=== PATIENT | male | born 1960 | race Caucasian/White ===

== ENCOUNTER 2022-06-21 08:39 | Outpatient (CLI) | payer OTHER, SELFPAY | END 2022-06-21 08:40 | disposition home or self-care (01) | PROVIDERS: PCP Family Medicine; Visit Provider Family Medicine | DX: I10 Essential (primary) hypertension (principal); G62.9 Polyneuropathy, unspecified; Z12.5 Encounter for screening for malignant neoplasm of prostate | CPT/HCPCS: 80048; 80061; 82607; 84153; 84443 ==

== ENCOUNTER 2023-05-26 10:49 | Outpatient (CLI) | payer OTHER, SELFPAY | END 2023-05-26 10:50 | disposition home or self-care (01) | LOC: NFLDREF 10:49 | PROVIDERS: PCP Family Medicine; Visit Provider Family Medicine | DX: I10 Essential (primary) hypertension (principal) | CPT/HCPCS: 80048 ==

== ENCOUNTER 2024-06-03 12:36 | Outpatient (CLI) | payer OTHER, SELFPAY | END 2024-06-03 12:37 | disposition home or self-care (01) | LOC: NFLDUCREF 12:37 | PROVIDERS: PCP Family Medicine; Visit Provider Nurse Practitioner | DX: R22.42 Localized swelling, mass and lump, left lower limb (principal); R79.89 Other specified abnormal findings of blood chemistry | CPT/HCPCS: 85379 ==

== ENCOUNTER 2024-06-03 14:51 | Emergency (ER) | payer OTHER, SELFPAY ==
--- OUTSIDE RECORDS SUMMARY | 2024-06-03 14:54 | XMS_ITS | Clinical Summary ---
Author Organization [facility] Address [address] [place] [address] Care Team Providers Care Mold Breaker Name Role Phone Found, No Pcp MD Primary Care Provider Unavailab le Source Comments You are receiving this document as you are listed as the primary care provider,follow-up provider, or the patient has been referred to you for consultation.This is in compliance with the Medicare and[facility] Incentive [facility],which states Providers who transition their patient to another setting of careor provider of care or refers their patient to another provider of care shouldprovide summary care record for each transition of care or referral. 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 Not on file Not o n file Last Filed Vital Signs Vital Sign Reading Time Taken Comments Blood Pressure 143/96 10/10/2016 3:28 PM CDT Pulse 72 04/08/2016 11:37 AM SHAKE SPLITTER Temperature - - Respiratory Rate 16 04/06/2013 1:45 PM SHAKE SPLITTER Oxygen Saturation 96% 04/06/2013 1:45 PM SHAKE SPLITTER Inhaled Oxygen Concentration - - Weight 90.3 kg (199 lb) 10/10/2016 3:24 PM CDT Height 182.9 cm (6') 10/10/2016 3:24 PM CDT Body Mass Index 26.99 10/10/2016 3:24 PM CDT Plan of Treatment Health Maintenance Due Date Last Done Comments Hep C Screening (Preventive Services) 1960 Adult Preventive Visit 02/07/1980 Pneumococcal Vaccine 50+ Yrs (1 of 1 - PCV) 02/07/2012 Zoster/Shingles Vaccine (1 of 2) 02/07/2012 PSA Screening Discussion 02/10/2016 02/09/2015 Cholesterol 02/10/2020 02/09/2015, 04/04/2011, 05/04/2004, Additional history exists DTaP/Tdap/Td Vaccine (2 - Tdap) 05/19/2021 05/20/2011 Colonoscopy 04/06/2023 04/06/2013 (Completed) COVID-19 Vaccine (1 - 2023- season) 2023 Influenza Vaccine (#1) 2023 6, 11/17/2014, 11/17/2014 (Completed) RSV Vaccine (1 - 1-dose 75+ series) 2037 HIV Screening (Preventive Services) Completed 05/11/2001, 02/16/2001 HepA Vaccine Aged Out 04/07/2017, 09/27/2016 No lo nger eligible based on patient's age to complete this topic HepB Vaccine Aged Out No longer eligi ble based on patient's age to complete this topic Hib Vaccine Aged Out No longer eligi ble based on patient's age to complete this topic IPV (Polio) Vaccine Aged Out No longe r eligible based on patient's age to complete this topic MCV4 Vaccine Aged Out No longer eligi ble based on patient's age to complete this topic Meningococcal B Vaccine Aged Out No l onger eligible based on patient's age to complete this topic Procedures Procedure Name Priority Date/Time Associated Diagnosis Comments PROSTATIC SPECIFIC ANTIGEN(SCREEN) Routine 02/09/2015 10:11 AM SHAKE SPLITTER Screening for prostate cancer LIPID PANEL & DIRECT LDL (IF NEEDED) Routine 02/09/2015 10:11 AM SHAKE SPLITTER Screening for cholesterol level HIV ANTIBODY Routine 05/11/2001 8:22 AM SHAKE SPLITTER from Last 3 Months or Most Recently Relevant to Health Maintenance Results * (ABNORMAL) Lipid Panel and Direct LDL(If Needed) (02/09/2015 10:11 AM SHAKE SPLITTER) Cholesterol 143 0 - 199 mg/dL HP CONVERSION Triglycerides 80 4 - 149 mg/dL HP CONVERSION HDL Cholesterol 39(L) >39 mg/dL HP CONVERSION Cholesterol/HDL Ratio Screen 3.7 HP CONVERSION LDL Calculated 88 19 - 130 mg/dL HP CONVERSION Hours Fasting 12.0 HP CONVERSION 02/09/2015 10:1 1 AM SHAKE SPLITTER 02/09/2015 12:45 PM SHAKE SPLITTER Narrative HP CONVERSION - 02/09/2015 1:44 PM SHAKE SPLITTER Performed at [address] [address] CLIA number [id number] Jacob Tobin MD LAB_1 Final Result HP CONVERSION * Prostatic Specific Antigen (Screen) (02/09/2015 10:11 AM SHAKE SPLITTER) Pathologist [facility] Prostate Specific Antigen 1.0 0.0 - 4.0 ng/mL HP CONVERSION Comment: The [employer] PSA Chemiluminescent immunoassay is used. Results obtained with different test methods or kits cannot be used interchangeably. 02/09/2015 10:1 1 AM SHAKE SPLITTER 02/09/2015 12:45 PM SHAKE SPLITTER Narrative HP CONVERSION - 02/09/2015 1:58 PM SHAKE SPLITTER Performed at [address] [address] CLIA number [id number] Jacob Tobin MD LAB_1 Final Result HP CONVERSION * HIV Antibody (05/11/2001 8:22 AM SHAKE SPLITTER) [facility] HIV 1/HIV 2 Non Reac Non Reac HP CONVERSION 05/11/2001 8:22 AM SHAKE SPLITTER Darrell Rudd MD LAB_1 Final Result HP CONVERSION from Last 3 Months or Most Recently Relevant to Health Maintenance Insurance [facility] Care Teams Mold Breaker Relationship Specialty Start Date End Date Found, No Pcp, [id number] [place] [address] PCP - General 12/24/19
[2024-06-03 15:01] VITALS: BP 119/80; PULSE 90; RESP 18; TEMP 36.9; O2SAT 96; BMI 27.8
--- NOTE | 2024-06-03 15:13 | ED_ITS ---
HPI - General Adult General Time Seen by Provider: 15:13 <Abby Sanon MD - Last Filed: 06/03/24 15:39> Date Seen: 06/03/24 <Abby Sanon MD - Last Filed: 06/03/24 15:39> Chief complaint: Lower Extremity Swelling <Abby Sanon MD - Last Filed: 06/03/24 15:39> Stated complaint: possible blood clot <Abby Sanon MD - Last Filed: 06/03/24 15:39> Time Seen by Provider: 06/03/24 15:13 <Abby Sanon MD - Last Filed: 06/03/24 15:39> Source: patient and RN notes reviewed <Abby Sanon MD - Last Filed: 06/03/24 15:39> Mode of arrival: ambulatory <Abby Sanon MD - Last Filed: 06/03/24 15:39> Limitations: no limitations <Abby Sanon MD - Last Filed: 06/03/24 15:39> History of Present Illness HPI narrative: royce is a very pleasant 64-year-old male with history of hypertension currently on losartan/hydrochlorothiazide who comes to the emergency room have with a referral from urgent care for possible blood clot. Royce had been traveling earlier in the week but had been wearing compression hose. He noted in the last 24 hours area of redness discomfort in firmness on the left posterior medial thigh. He has not had any fevers chills vomiting. He denies a history of DVT or PE. He has no shortness of breath. D-dimer at outside facility for report was elevated. <Abby Sanon MD - Last Filed: 06/03/24 15:39> Related Data Home medications: Previous Rx's ?Medication ?Instructions ?Recorded losartan 100 1 tab PO QDAY #90 tabs 05/26/23 mg-hydrochlorothiazide 12.5 mg tablet apixaban 5 mg (74 tabs) tablets in 5 mg PO BID #74 ea 06/03/24 a dose pack (Eliquis DVT-PE Treat 30D Start) cephalexin 500 mg capsule 500 mg PO QID #20 caps 06/03/24 <Abby Sanon MD - Last Filed: 06/03/24 15:39> Allergies/adverse reactions: Allergies Allergy/AdvReac Type Severity Reaction Status Date / Time CYNTHIA Inhibitors AdvReac Mild Cough Verified 06/03/24 15:00 lisinopril AdvReac Mild Cough Verified 06/03/24 15:00 <Abby Sanon MD - Last Filed: 06/03/24 15:39> Review of Systems Status of ROS: Reports: 6 or more systems reviewed and unremarkable except as noted in History and below <Abby Sanon MD - Last Filed: 06/03/24 15:39> [facility] Medical History: Medical History Primary hypertension ?I10 - Essential (primary) hypertension (ICD-10) History of disruption of posterior cruciate ligament ?Z87.828 - Personal history of other (healed) physical injury and trauma (ICD-10) GERD (gastroesophageal reflux disease) ?K21.9 - Gastro-esophageal reflux disease without esophagitis (ICD-10) KELLEY on CPAP ?G47.33 - Obstructive sleep apnea (adult) (pediatric) (ICD-10) ADD (attention deficit disorder) ?F98.8 - Other specified behavioral and emotional disorders with onset usually occurring in childhood and adolescence (ICD-10) Anxiety and depression ?F41.9 - Anxiety disorder, unspecified (ICD-10) ?F32.A - Depression, unspecified (ICD-10) Rosacea ?L71.9 - Rosacea, unspecified (ICD-10) Hearing loss ?H91.90 - Unspecified hearing loss, unspecified ear (ICD-10) History of concussion (2017) ?Z87.820 - Personal history of traumatic brain injury (ICD-10) <Abby Sanon MD - Last Filed: 06/03/24 15:39> Surgical History: Surgical History History of vasectomy ?Z98.52 - Vasectomy status (ICD-10) History of umbilical hernia repair (06/24/21) ?Z98.890 - Other specified postprocedural states (ICD-10) ?Z87.19 - Personal history of other diseases of the digestive system (ICD-10) History of bilateral inguinal hernia repair (06/24/21) ?Z98.890 - Other specified postprocedural states (ICD-10) ?Z87.19 - Personal history of other diseases of the digestive system (ICD-10) <Abby Sanon MD - Last Filed: 06/03/24 15:39> Family History: Family History Paternal Grandmother Stroke, Onset Age: 58 Maternal Grandfather Lung cancer Mother Breast cancer, Onset Age: 64 High blood pressure Father Nonmelanoma skin cancer Depression Brother Depression Alcohol dependence <Abby Sanon MD - Last Filed: 06/03/24 15:39> Social History: Social History Smoking Status: Never smoker How often do you have a drink containing alcohol: monthly or less AUDIT-C Alcohol total score: 1 Non-prescribed substance use: denies use <Abby Sanon MD - Last Filed: 06/03/24 15:39> Exam Narrative: Exam Narrative: Alert and oriented. No acute distress. Heart with regular rate and rhythm and lungs are clear. Examination of lower extremity shows a softball sized area of erythema on the left posterior medial distal thigh. There is a palpable area of firmness measuring approximately 3 cm in length by 1 cm in diameter. Mild tenderness noted. On the proximal posterior medial calf there is an area of erythema approximately plum size without any tenderness or underlying abnormality. The area of redness is warm to the touch. <Abby Sanon MD - Last Filed: 06/03/24 15:39> Const: Vital Signs, click to edit/add: Vital Signs - 24 hr 06/03/24 15:01 Temperature 98.5 F Pulse Rate [Pulse Oximeter] 90 Respiratory Rate 18 Blood Pressure [Ri ght Upper Arm] 119/80 Pulse Oximetry 96 Oxygen Delivery Me thod Room Air <Abby Sanon MD - Last Filed: 06/03/24 15:39> Vital Signs, click to edit/add: Vital Signs - 24 hr 06/03/24 15:01 Temperature 98.5 F Pulse Rate [Pulse Oximeter] 90 Respiratory Rate 18 Blood Pressure [Ri ght Upper Arm] 119/80 Pulse Oximetry 96 Oxygen Delivery Me thod Room Air <Justin Del Cid DO - Last Filed: 06/03/24 16:44> Documenting provider has reviewed patient's vital signs: yes <Abby Sanon MD - Last Filed: 06/03/24 15:39> Course Course ED Course: Differential diagnosis includes but is not limited to DVT, cellulitis, abscess. Bilateral lower extremity Dopplers ordered as patient did have extended travel for 2 days earlier this week. D-dimer is 0.52 which is essentially normal with age adjustment. However, patient has palpable abnormality and therefore Dopplers have been ordered. Patient does not smoke, have a family history of DVT or other risk factors. This case is signed out to my colleague Dr. Del Cid <Abby Sanon MD - Last Filed: 06/03/24 15:39> Vital Signs Vital signs: Initial Vital Signs Temperature 98.5 F 06/03/24 15:01 Temperature Source Temporal Artery Scan 06/03/24 15:01 Pulse Rate 90 06/03/24 15:01 Pulse Rhythm Regular 06/03/24 15:01 Respiratory Rate 18 06/03/24 15:01 Blood Pressure 119/80 06/03/24 15:01 Blood Pressure Mean 93 06/03/24 15:01 Blood Pressure Position Sitting 06/03/24 15:01 Pulse Oximetry 96 06/03/24 15:01 Oxygen Delivery Method Room Air 06/03/24 15:01 Vital Signs Temperature 98.5 F 06/03/24 15:01 Pulse Rate 90 06/03/24 15:01 Respiratory Rate 18 06/03/24 15:01 Blood Pressure 119/80 06/03/24 15:01 Pulse Oximetry 96 06/03/24 15:01 Oxygen Delivery Method Room Air 06/03/24 15:01 Temperature 98.5 F 06/03/24 15:01 Pulse Rate 90 06/03/24 15:01 Respiratory Rate 18 06/03/24 15:01 Blood Pressure 119/80 06/03/24 15:01 Pulse Oximetry 96 06/03/24 15:01 Oxygen Delivery Method Room Air 06/03/24 15:01 <Abby Sanon MD - Last Filed: 06/03/24 15:39> Initial Vital Signs Temperature 98.5 F 06/03/24 15:01 Temperature Source Temporal Artery Scan 06/03/24 15:01 Pulse Rate 90 06/03/24 15:01 Pulse Rhythm Regular 06/03/24 15:01 Respiratory Rate 18 06/03/24 15:01 Blood Pressure 119/80 06/03/24 15:01 Blood Pressure Mean 93 06/03/24 15:01 Blood Pressure Position Sitting 06/03/24 15:01 Pulse Oximetry 96 06/03/24 15:01 Oxygen Delivery Method Room Air 06/03/24 15:01 Vital Signs Temperature 98.5 F 06/03/24 15:01 Pulse Rate 90 06/03/24 15:01 Respiratory Rate 18 06/03/24 15:01 Blood Pressure 119/80 06/03/24 15:01 Pulse Oximetry 96 06/03/24 15:01 Oxygen Delivery Method Room Air 06/03/24 15:01 Temperature 98.5 F 06/03/24 15:01 Pulse Rate 90 06/03/24 15:01 Respiratory Rate 18 06/03/24 15:01 Blood Pressure 119/80 06/03/24 15:01 Pulse Oximetry 96 06/03/24 15:01 Oxygen Delivery Method Room Air 06/03/24 15:01 <Justin Del Cid DO - Last Filed: 06/03/24 16:44> Medical Decision Making MDM Narrative Medical decision making narrative: Patient was signed out to me pending results of his ultrasound. Ultrasound shows a superficial vein thrombosis at the left greater saphenous vein. This is consistent with the location of his swelling and inflammation. the clot is about 4.3 cm at least. Considering recommendation of treatment is over 5 cm and this clot is almost that long at a minimum I do believe it is reasonable to start him on blood thinners. He has no risk factors. Only medical issues hypertension. I spoke to him about starting him a blood thinners versus not. I explained that they will greatly increase his chance of bleeding and he will need to be careful as any hits to the head could cause severe hemorrhaging. He states he understands and is agreeable to slide the blood thinners. There is also warmth and erythema to this area. Almost thrombophlebitis is narrow I cannot definitively rule out any associated infection. I spoke to him and will start him on Keflex and said to not take the antibiotics unless he starts noticing worsening redness and swelling of the next few days. <Justin Del Cid DO - Last Filed: 06/03/24 16:44> Imaging Data Venous US: Attestation: I have reviewed the pertinent imaging results. <Justin Del Cid DO - Last Filed: 06/03/24 16:44> Radiologist's impression: 1. No deep vein thrombosis in the bilateral lower extremities. 2. There is superficial vein thrombosis seen in the left great saphenous vein at the level of the proximal calf and knee. Dictated by Jf King MD @ 06/03/2024 4:25:49 PM <Justin Del Cid DO - Last Filed: 06/03/24 16:44> Discharge Plan Discharge Clinical Impression: Superficial phlebitis and thrombophlebitis of left leg <Abby Sanon MD - Last Filed: 06/03/24 15:39> Patient Disposition: Home, Self-Care <bAby Sanon MD - Last Filed: 06/03/24 15:39> Condition: Stable <Abby Sanon MD - Last Filed: 06/03/24 15:39> Instructions: Superficial Thrombophlebitis (ED) <Abby Sanon MD - Last Filed: 06/03/24 15:39> Additional Instructions: the redness and warmth around your superficial thrombophlebitis is likely due to inflammation from the blood clot. Is less likely to be antibiotics but I will send you Keflex to start if the redness and warmth is not improving in the next few days. There could possibly be an overlying cellulitis but at this time seems less likely. I will also start you on blood thinners. it is important to be careful when taking blood thinners as they greatly increase the risk of bleeding. Recommend follow-up with Your primary care provider next week. <Abby Sanon MD - Last Filed: 06/03/24 15:39> Prescriptions: New cephalexin 500 mg capsule 500 mg PO QID Qty: 20 0RF Eliquis DVT-PE Treat 30D Start 5 mg (74 tabs) tablets,dose pack 5 mg PO BID Qty: 74 0RF Rx Instructions: take 10 mg twice daily for for 7 days then 5 mg twice daily the her after that No Action losartan-hydrochlorothiazide 100-12.5 mg tablet 1 tab PO QDAY Qty: 90 3RF <Abby Sanon MD - Last Filed: 06/03/24 15:39> Follow Up/Referrals: Gurpreet Cruz MD [Primary Care Provider] - <Abby Sanon MD - Last Filed: 06/03/24 15:39> Stand Alone Forms: MyHealth Info Instructions <Abby Sanon MD - Last Filed: 06/03/24 15:39>
--- NOTE | 2024-06-03 15:17 | CRLHL7_ITS ---
For Patients: As a result of the Century Cures Act, medical imaging exams and procedure reports are released immediately into your electronic medical record. You may view this report before your referring provider. If you have questions, please contact your health care provider. INDICATION: swelling/redness left knee, recent travel TECHNIQUE: Venous duplex ultrasound of the bilateral lower extremities utilizing compression with del rosario-scale, color Doppler, and spectral Doppler imaging. COMPARISON: None FINDINGS: There is no sonographic evidence of deep vein thrombosis in the bilateral common femoral, deep femoral, superficial femoral, popliteal, posterior tibial, or peroneal veins. There is superficial vein thrombosis seen in the left great saphenous vein at the level of the proximal calf and knee. The soft tissues are unremarkable. IMPRESSION: 1. No deep vein thrombosis in the bilateral lower extremities. 2. There is superficial vein thrombosis seen in the left great saphenous vein at the level of the proximal calf and knee. Dictated by Jf King MD @ 06/03/2024 4:25:49 PM (Electronically Signed)
--- OUTSIDE RECORDS SUMMARY | 2024-06-03 16:16 | XMS_ITS | Clinical Summary ---
Author Organization [facility] Address [address] [place] [address] Care Team Providers Care Med Asst Name Role Phone Found, No Pcp MD Primary Care Provider Unavailab le Source Comments You are receiving this document as you are listed as the primary care provider,follow-up provider, or the patient has been referred to you for consultation.This is in compliance with the Medicare and[facility] Incentive Program,which states Providers who transition their patient to another setting of careor provider of care or refers their patient to another provider of care shouldprovide summary care record for each transition of care or referral. 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 Overview (10/09/2016): LW Onset: 88Guk02 ; Low HDL Cholesterol Immunizations Immunization Administration Dates Next Due Chicken Pox - History of Illness 02/16/1967 HepA Adult (19+ yrs) 04/07/2017,09/27/2016 Influenza IIV4 (Quadrivalent) 0.5mL (67503) 11/17,11/17/2014 TDAP (ADACEL) 05/20/2011 Family History Medical [...] 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 Not on file Not o n file Last Filed Vital Signs Vital Sign Reading Time Taken Comments Blood Pressure 143/96 10/10/2016 3:28 PM CDT Pulse 72 04/08/2016 11:37 AM SEALANT MIXER Temperature - - Respiratory Rate 16 04/06/2013 1:45 PM SEALANT MIXER Oxygen Saturation 96% 04/06/2013 1:45 PM SEALANT MIXER Inhaled Oxygen Concentration - - Weight 90.3 [...] PROSTATIC SPECIFIC ANTIGEN(SCREEN) Routine 02/09/2015 10:11 AM SEALANT MIXER Screening for prostate cancer LIPID PANEL & DIRECT LDL (IF NEEDED) Routine 02/09/2015 10:11 AM SEALANT MIXER Screening for cholesterol level HIV ANTIBODY Routine 05/11/2001 8:22 AM SEALANT MIXER from Last 3 Months or Most Recently Relevant to Health Maintenance Results * (ABNORMAL) Lipid Panel and Direct LDL(If Needed) (02/09/2015 10:11 AM SEALANT MIXER) Cholesterol 143 0 - 199 mg/dL HP CONVERSION Triglycerides 80 4 - 149 mg/dL HP CONVERSION HDL Cholesterol 39(L) >39 mg/dL HP CONVERSION Cholesterol/HDL Ratio Screen 3.7 HP CONVERSION LDL Calculated 88 19 - 130 mg/dL HP CONVERSION Hours Fasting 12.0 HP CONVERSION 02/09/2015 10:1 1 AM SEALANT MIXER 02/09/2015 12:45 PM SEALANT MIXER Narrative HP CONVERSION - 02/09/2015 1:44 PM SEALANT MIXER Performed at [address] [address] CLIA number [id number] Jacob Tobin MD LAB_1 Final Result HP CONVERSION * Prostatic Specific Antigen (Screen) (02/09/2015 10:11 AM SEALANT MIXER) Pathologist [facility] Prostate Specific Antigen 1.0 0.0 - 4.0 ng/mL HP CONVERSION Comment: The [employer] PSA Chemiluminescent immunoassay is used. Results obtained with different test methods or kits cannot be used interchangeably. 02/09/2015 10:1 1 AM SEALANT MIXER 02/09/2015 12:45 PM SEALANT MIXER Narrative HP CONVERSION - 02/09/2015 1:58 PM SEALANT MIXER Performed at [address] [address] CLIA number [id number] Jacob Tobin MD LAB_1 Final Result HP CONVERSION * HIV Antibody (05/11/2001 8:22 AM SEALANT MIXER) [facility] HIV 1/HIV 2 Non Reac Non Reac HP CONVERSION 05/11/2001 8:22 AM SEALANT MIXER Darrell Rudd MD LAB_1 Final Result HP CONVERSION from Last 3 Months or Most Recently Relevant to Health Maintenance Insurance [facility] Care Teams Med Asst Relationship Specialty Start Date End Date Found, No Pcp, [address] [place] [address] PCP - General 12/24/19
== END 2024-06-03 16:55 | disposition home or self-care (01) ==
PROVIDERS: Emergency Provider Student in an Organized Health Care Education/Training Program; PCP Family Medicine
DX: I82.812 Embolism and thrombosis of superficial veins of left lower extremity (principal); R22.42 Localized swelling, mass and lump, left lower limb
CPT/HCPCS: 93970; 99283

== ENCOUNTER 2024-06-29 16:03 | Outpatient (CLI) | payer OTHER, SELFPAY | END 2024-06-29 16:04 | disposition home or self-care (01) | PROVIDERS: PCP Family Medicine; Visit Provider Family Medicine | DX: Z00.00 Encounter for general adult medical examination without abnormal findings (principal); I10 Essential (primary) hypertension; Z12.5 Encounter for screening for malignant neoplasm of prostate | CPT/HCPCS: 80048; 80061; 84460; G0103 ==

== ENCOUNTER 2024-08-10 21:01 | Emergency (ER) | payer OTHER, SELFPAY ==
--- OUTSIDE RECORDS SUMMARY | 2024-08-10 21:04 | XMS_ITS | Clinical Summary ---
Author Organization [facility] Address [address] [place] [address] Care Team Providers Care Typist Name Role Phone Found, No Pcp MD Primary Care Provider Unavailab le Source Comments You are receiving this document as you are listed as the primary care provider,follow-up provider, or the patient has been referred to you for consultation.This is in compliance with the Medicare and[facility] EHR Incentive Program,which states Providers who transition their patient to another setting of careor provider of care or refers their patient to another provider of care shouldprovide summary care record for each transition of care or referral. 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 Overview (10/09/2016): LW Onset: [id number] ; Low HDL Cholesterol Immunizations Immunization Administration Dates Next Due Chicken Pox - History of Illness 02/16/1967 HepA Adult (19+ yrs) 04/07/2017,09/27/2016 Influenza IIV4 (Quadrivalent) 0.5mL (44727) 11/17,11/17/2014 TDAP (ADACEL) 05/20/2011 Family History Medical [...] 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 Not on file Not on file Not o n file Last Filed Vital Signs Vital Sign Reading Time Taken Comments Blood Pressure 143/96 10/10/2016 3:28 PM CDT Pulse 72 04/08/2016 11:37 AM ENROLLMENT MANAGEMENT MANAGER Temperature - - Respiratory Rate 16 04/06/2013 1:45 PM ENROLLMENT MANAGEMENT MANAGER Oxygen Saturation 96% 04/06/2013 1:45 PM ENROLLMENT MANAGEMENT MANAGER Inhaled Oxygen Concentration - - Weight 90.3 [...] (1 - 2023- season) 2023 Influenza Vaccine (Season Ended) 2024 12/04/2015, 11/17/2014, 11/17/2014 (Completed) RSV Vaccine (1 - [...] PROSTATIC SPECIFIC ANTIGEN(SCREEN) Routine 02/09/2015 10:11 AM ENROLLMENT MANAGEMENT MANAGER Screening for prostate cancer LIPID PANEL & DIRECT LDL (IF NEEDED) Routine 02/09/2015 10:11 AM ENROLLMENT MANAGEMENT MANAGER Screening for cholesterol level HIV ANTIBODY Routine 05/11/2001 8:22 AM ENROLLMENT MANAGEMENT MANAGER from Last 3 Months or Most Recently Relevant to Health Maintenance Results * (ABNORMAL) Lipid Panel and Direct LDL(If Needed) (02/09/2015 10:11 AM ENROLLMENT MANAGEMENT MANAGER) Cholesterol 143 0 - 199 mg/dL HP CONVERSION Triglycerides 80 4 - 149 mg/dL HP CONVERSION HDL Cholesterol 39(L) >39 mg/dL HP CONVERSION Cholesterol/HDL Ratio Screen 3.7 HP CONVERSION LDL Calculated 88 19 - 130 mg/dL HP CONVERSION Hours Fasting 12.0 HP CONVERSION 02/09/2015 10:1 1 AM ENROLLMENT MANAGEMENT MANAGER 02/09/2015 12:45 PM ENROLLMENT MANAGEMENT MANAGER Narrative HP CONVERSION - 02/09/2015 1:44 PM ENROLLMENT MANAGEMENT MANAGER Performed at [address] [address] CLIA number [id number] Jacob Tobin MD LAB_1 Final Result HP CONVERSION * Prostatic Specific Antigen (Screen) (02/09/2015 10:11 AM ENROLLMENT MANAGEMENT MANAGER) Pathologist [facility] Prostate Specific Antigen 1.0 0.0 - 4.0 ng/mL HP CONVERSION Comment: The Barber PSA Chemiluminescent immunoassay is used. Results obtained with different test methods or kits cannot be used interchangeably. 02/09/2015 10:1 1 AM ENROLLMENT MANAGEMENT MANAGER 02/09/2015 12:45 PM ENROLLMENT MANAGEMENT MANAGER Narrative HP CONVERSION - 02/09/2015 1:58 PM ENROLLMENT MANAGEMENT MANAGER Performed at [address] [address] CLIA number [id number] Jacob Tobin MD LAB_1 Final Result HP CONVERSION * HIV Antibody (05/11/2001 8:22 AM ENROLLMENT MANAGEMENT MANAGER) [facility] HIV 1/HIV 2 Non Reac Non Reac HP CONVERSION 05/11/2001 8:22 AM ENROLLMENT MANAGEMENT MANAGER Darrell Rudd MD LAB_1 Final Result HP CONVERSION from Last 3 Months or Most Recently Relevant to Health Maintenance Insurance [facility] Care Teams Typist Relationship Specialty Start Date End Date Found, No Pcp, [address] [place] [address] PCP - General 12/24/19
[2024-08-10 21:08] VITALS: BP 121/78; PULSE 89; RESP 18; TEMP 36.8; O2SAT 97; BMI 26.7
[2024-08-10 21:58] VITALS: BP 121/81; PULSE 78; RESP 16; O2SAT 97
--- NOTE | 2024-08-10 22:02 | ED_ITS ---
HPI - Wound/Laceration General Chief Complaint: Laceration/Wound Stated Complaint: Cut face on garbage can Time Seen by Provider: 08/10/24 21:14 History of Present Illness HPI narrative: This 64-year-old male comes in with a laceration on his right cheek of of space. He was loading some gustavo into a bin when the been tipped over and he fell into it. He has 2 linear lacerations on his right cheek. He states that his tetanus was updated 1 month ago. Related Data Home Medications ?Medication ?Instructions ?Recorded ?Confirmed aspirin 325 mg tablet 325 mg PO DAILY 08/10/24 Previous Rx's ?Medication ?Instructions ?Recorded doxycycline hyclate 100 mg tablet 100 mg PO DAILY PRN rosacea #90 06/29/24 tabs losartan 100 1 tab PO QDAY #90 tabs 06/29 mg-hydrochlorothiazide 12.5 mg tablet Allergies Allergy/AdvReac Type Severity Reaction Status Date / Time CYNTHIA Inhibitors AdvReac Mild Cough Verified 07/09/24 10:52 lisinopril AdvReac Mild Cough Verified 07/09/24 10:52 Review of Systems Status of ROS: Reports: 10 or more systems reviewed and unremarkable except as noted in History and below Narrative: Constitutional: No fevers, no weight gain or loss. Eyes: No discharge. No vision changes. HENT: No congestion, no sore throat, no ear pain. Cardiovascular: No chest pain, no palpitations. Respiratory: No shortness of breath, no wheezes, no cough. Gastrointestinal: No abdominal pain, no vomiting, no diarrhea. Genitourinary: No dysuria, no hematuria. Musculoskeletal: Normal range of motion. Skin: No rashes, no pruritis. Neurological: No dizziness, weakness, sensory change, speech change. Endo/Heme/Allergies: No bruising or bleeding. No polydipsia. Pysch: no suicidality, no anxiety, no insomnia. All other systems reviewed and are negative. [facility] Medical History Primary hypertension ?I10 - Essential (primary) hypertension (ICD-10) History of disruption of posterior cruciate ligament ?Z87.828 - Personal history of other (healed) physical injury and trauma (ICD-10) GERD (gastroesophageal reflux disease) ?K21.9 - Gastro-esophageal reflux disease without esophagitis (ICD-10) KELLEY on CPAP ?G47.33 - Obstructive sleep apnea (adult) (pediatric) (ICD-10) ADD (attention deficit disorder) ?F98.8 - Other specified behavioral and emotional disorders with onset usually occurring in childhood and adolescence (ICD-10) Anxiety and depression ?F41.9 - Anxiety disorder, unspecified (ICD-10) ?F32.A - Depression, unspecified (ICD-10) Rosacea ?L71.9 - Rosacea, unspecified (ICD-10) Hearing loss ?H91.90 - Unspecified hearing loss, unspecified ear (ICD-10) History of concussion (2017) ?Z87.820 - Personal history of traumatic brain injury (ICD-10) Surgical History History of vasectomy ?Z98.52 - Vasectomy status (ICD-10) History of umbilical hernia repair (06/24/21) ?Z98.890 - Other specified postprocedural states (ICD-10) ?Z87.19 - Personal history of other diseases of the digestive system (ICD-10) History of bilateral inguinal hernia repair (06/24/21) ?Z98.890 - Other specified postprocedural states (ICD-10) ?Z87.19 - Personal history of other diseases of the digestive system (ICD-10) Family History Paternal Grandmother Stroke, Onset Age: 58 Maternal Grandfather Lung cancer Mother Breast cancer, Onset Age: 64 High blood pressure Father Nonmelanoma skin cancer Depression Brother Depression Alcohol dependence Social History What is your current living situation?: I presently have a place to live Problems where you live: no known problems In the past 12 months, utilities in danger of being shut off: no In past 12 months, lack of transportation kept you from medical appts, meetings, work, or getting things needed for daily living: no In the past 12 mos, have been you worried that your food would run out before you had money to buy more?: never true In the past 12 mos, the food you bought just didn't last and you didn't have money to buy more?: never true Smoking Status: Never smoker How often do you have a drink containing alcohol: monthly or less AUDIT-C Alcohol total score: 1 Non-prescribed substance use: denies use How often does anyone, including family, friends and others, physically hurt you : never How often does anyone, including family, friends and others, insult or talk down to you: never How often does anyone, including family, friends and others, threaten you with harm: never How often does anyone, including family, friends and others, scream or curse at you: never Exam Narrative: Exam Narrative: Constitutional: Well-developed, well-nourished, no acute distress. HEENT: 2 linear lacerations on the right cheek. One measures 1 cm in length and the other is 3 cm long. Neck: Normal range of motion. Nontender. Supple. Heart: Intact distal pulses. Lungs: No chest discomfort. No wheezes, rhonchi, or rales. Abdomen: Nontender. Back: Normal range of motion. Extremities: Normal range of motion. No injury. Skin: Intact. No rash. Warm. No erythema or pallor. Neurologic: No altered sensation. No weakness. Alert and oriented. Psychiatric: No suicidality. No anxiety or depression. No insomnia. Nursing notes and vitals signs are reviewed. Const: Vital Signs, click to edit/add: Vital Signs - 24 hr 08/10/24 21:08 08/10/24 21:58 Temperature 98.2 F Pulse Rate [Right Pulse Oximeter] 89 78 Respiratory Rate 18 16 Blood Pressure [Ri ght Upper Arm] 121/78 121/81 Pulse Oximetry 97 97 Oxygen Delivery Me thod Room Air Room Air Course Vital Signs Vital signs: Initial Vital Signs Temperature 98.2 F 08/10/24 21:08 Temperature Source Temporal Artery Scan 08/10/24 21:08 Pulse Rate 89 08/10/24 21:08 Respiratory Rate 18 08/10/24 21:08 Blood Pressure 121/78 08/10/24 21:08 Blood Pressure Mean 92 08/10/24 21:08 Blood Pressure Position Sitting 08/10/24 21:08 Pulse Oximetry 97 08/10/24 21:08 Oxygen Delivery Method Room Air 08/10/24 21:08 Vital Signs Temperature 98.2 F 08/10/24 21:08 Pulse Rate 89 08/10/24 21:08 Respiratory Rate 18 08/10/24 21:08 Blood Pressure 121/78 08/10/24 21:08 Pulse Oximetry 97 08/10/24 21:08 Oxygen Delivery Method Room Air 08/10/24 21:08 Temperature 98.2 F 08/10/24 21:08 Pulse Rate 78 08/10/24 21:58 Respiratory Rate 16 08/10/24 21:58 Blood Pressure 121/81 08/10/24 21:58 Pulse Oximetry 97 08/10/24 21:58 Oxygen Delivery Method Room Air 08/10/24 21:58 MDM - Wound/Laceration MDM Narrative Medical decision making narrative: This patient has lacerations on his cheek that would benefit from suture repair. After 1% lidocaine for anesthesia the wound was cleansed. I placed 2 sutures in the smaller wound using 6.0 Ethilon suture. 6 sutures with the same material were placed in the longer wound. The skin edges are approximated nicely. Instructions regarding wound care were given. Discharge Plan Discharge Clinical Impression: Laceration Patient Disposition: Home, Self-Care Condition: Improved Additional Instructions: Keep wound clean and dry. Follow-up with clinic urgent care in 5-7 days for suture removal. Return if worsening. Prescriptions: No Action losartan-hydrochlorothiazide 100-12.5 mg tablet 1 tab PO QDAY Qty: 90 3RF doxycycline hyclate 100 mg tablet 100 mg PO DAILY PRN (Reason: rosacea) Qty: 90 3RF aspirin 325 mg tablet 325 mg PO DAILY Follow Up/Referrals: Gurpreet Cruz MD [Primary Care Provider, Family Practice] Stand Alone Forms: MyHealth Info Instructions
== END 2024-08-10 22:17 | disposition home or self-care (01) ==
LOC: ED 22:16
PROVIDERS: Emergency Provider Emergency Medicine Emergency Medical Services; PCP Family Medicine
DX: S01.411A Laceration without foreign body of right cheek and temporomandibular area, initial encounter (principal); W26.9XXA Contact with unspecified sharp object(s), initial encounter
CPT/HCPCS: 12011; 99283; 99284

== ENCOUNTER 2025-01-10 08:43 | Outpatient (CLI) | payer OTHER, SELFPAY ==
--- NOTE | 2025-01-25 09:33 | W.PM.SLEEP ---
Sleep Study Details Details Interpreting Provider: Elena Date of Sleep Study: 01/10/25 Sleep Study Details: STUDY TYPE:? Home unattended ? BMI:? 25.22 ORDERING PROVIDER:? Elena INDICATION:? Concern for sleep apnea ? SLEEP SUMMARY:? 445 minutes monitored RESPIRATORY SUMMARY:? AHI 16.6 per rule 1A, 9.2 per CMS guideline Low oxygen 81 20.5% of study oxygen less than 90% Snoring 97.6% PERIODIC LIMB MOVEMENTS OF SLEEP:? Not recorded CARDIAC:? Range 48-110, mean 61.8 beats per minute IMPRESSION:? Moderate obstructive sleep apnea with significant hypo oxygenation RECOMMENDATION: Treatment options include CPAP, dental appliance and/or airway expansion surgery. Once effective therapy is established would recommend overnight oximetry. If abnormal further cardiopulmonary evaluation may be indicated.
== END 2025-01-10 08:44 | disposition home or self-care (01) ==
PROVIDERS: PCP Family Medicine; Visit Provider Physician Assistant
DX: G47.33 Obstructive sleep apnea (adult) (pediatric) (principal)
CPT/HCPCS: 95806